=== PATIENT | female | born 1945 | race African-American/Black ===

== ENCOUNTER 2016-09-23 07:22 | Day surgery (SDC) | payer MEDICARE ==
--- NOTE | 2016-09-23 07:51 | Anesthesia Consultation ---
Anesthesia Consult and Med Hx Date of service: 09/23/16 - Airway Anesthetic Teeth Evaluation: Good ROM Head & Neck: Adequate Mental/Hyoid Distance: Adequate Mallampati Class: Class II Intubation Access Assessment: Probably Good - Pulmonary Exam CTA: Yes - Cardiac Exam Cardiac Exam: RRR - Pre-Operative Health Status ASA Pre-Surgery Classification: ASA2 Proposed Anesthetic Plan: MAC - Pulmonary Hx Smoking: No Hx Asthma: No Hx Respiratory Symptoms: No SOB: No COPD: No Hx Pneumonia: No - Cardiovascular System Hx Hypertension: Yes - Endocrine Hx Insulin Dependent Diabetes: No Hx Non-Insulin Dependent Diabetes: Yes
--- NOTE | 2016-09-23 07:51 | Anesthesia Day of Surgery ---
Anesthesia Day of Surgery - Day of Surgery Patient Examined: Yes Patient H&P Reviewed: Yes Patient is NPO: Yes
[2016-09-23] MEDS ORDERED: NACL 0.9% 1000 ML 1,000 ML IV SCH (08:00)
[2016-09-23] MEDS ORDERED: DIPRIVAN 10 MG/ML IV ONE (08:14)
[2016-09-23] MEDS ORDERED: XYLOCAINE MPF 2% ONE (08:30)
--- NOTE | 2016-09-23 09:25 | Short Stay Summary ---
Short Stay Documentation - Allergies and Medications Current Medications: Allergies No Known Allergies Allergy (Verified 09/22/16 12:32) Home Medications Medication Instructions Recorded Confirmed Last Taken Type Amlodipine Besylate [Amlodipine 11/07/13 11/07/13 09/21/16 History Besylate] Lisinopril/Hydrochlorothiazide 11/07/13 11/07/13 09/21/16 History [Lisinopril-Hctz 20-12.5 mg Tab] Metformin HCl [Metformin HCl] 11/07/13 11/07/13 09/21/16 History Potassium Chloride [K-Dur] 11/07/13 11/07/13 09/21/16 History Simvastatin [Simvastatin] 11/07/13 11/07/13 09/21/16 History Active Medications Sodium Chloride (Nacl 0.9% 1000 Ml) 1,000 mls @ 50 mls/hr IV DIRECT RACHELE Last Admin: 09/23/16 08:16 Dose: 50 mls/hr - Brief post op/procedure progress note Date of procedure: 09/23/16 Pre-op diagnosis: 1. Colon cancer screening 2. H/O colon polyps Post-op diagnosis: same (1. Colon polyps 2. Internal hemorrhoids) Procedure: Colonoscopy with snare polypectomy and cold biopsy polypectomy Anesthesia: MAC Findings: As above Surgeon: ARACELIS FAN Estimated blood loss: none Pathology: list (1. Cecal polyp 2. Proximal transverse colon polyps 3. Rectal polyp) Specimen disposition: to lab Condition: stable - Disposition Condition at discharge: Stable Disposition: DISCHARGED TO HOME OR SELFCARE Short Stay Discharge Plan Follow up with: ARACELIS FAN MD [Primary Care Provider] - 7 Days
[2016-09-23 09:43] VITALS: BP 124/59
[2016-09-23] MEDS ORDERED: WATER FOR IRRIG STERILE IR ONE (10:08)
== END 2016-09-23 07:23 | disposition home or self-care (01) ==
LOC: GIO 07:22
PROVIDERS: ATTEND Internal Medicine Gastroenterology
DX: Z12.11 Encounter for screening for malignant neoplasm of colon (principal); D12.0 Benign neoplasm of cecum; D12.3 Benign neoplasm of transverse colon; D12.8 Benign neoplasm of rectum; K64.8 Other hemorrhoids; E11.9 Type 2 diabetes mellitus without complications; I10 Essential (primary) hypertension; E78.00 Pure hypercholesterolemia, unspecified; Z79.899 Other long term (current) drug therapy
CPT/HCPCS: 45380; 45385; 82962; 88305; J2704